=== PATIENT | male | born 1940 | race Caucasian/White ===

== ENCOUNTER 2021-04-13 20:11 | Inpatient (IN) ==
[2021-04-13] MEDS ORDERED: Isovue-370 500 ML BOTTLE IVP ONE (20:32)
[2021-04-13 21:09] LABS: Basophils # 0.1 K/mcL (0.0-0.2); Basophils % 0.4 %; Eosinophils % 0.1 %; Hematocrit 43.8 % (37.5-50.1); Hemoglobin 15.5 g/dL (12.9-16.9); Immature Granulocytes % 0.6 % (0-4); Lymphocytes # 0.6 K/mcL (0.6-4.6); Lymphocytes % 4.4 %; Mean Corpuscular HGB Conc 35.4 g/dL (31.6-35.5); Mean Corpuscular Hemoglobin 32.6 pg (28.0-33.3); Mean Platelet Volume 10.6 fL (9.4-12.4); Monocytes # 0.3 K/mcL (0.0-1.3); Monocytes % 2.2 %; Neutrophils # 12.3 K/mcL (1.6-8.9); Platelet Count 199 K/mcL (140-400); Red Blood Count 4.76 M/mcL (4.19-5.50); Red Cell Distribution Width 12.2 % (11.5-14.5); Segmented Neutrophils % 92.3 %; White Blood Count 13.4 K/mcL (4.3-11.1)
[2021-04-13 21:18] LABS: INR 1.2; Prothrombin Time 13.2 Seconds (9.4-12.1)
[2021-04-13 21:33] LABS: Alanine Aminotransferase 44 Units/L (7-52); Albumin 2.8 g/dL (3.5-5.7); Albumin/Globulin Ratio 0.8 (1.1-2.2); Alkaline Phosphatase 51 Units/L (34-104); Aspartate Amino Transferase 82 Units/L (13-39); BUN/Creatinine Ratio 32 (6-26); Bilirubin,Direct 0.3 mg/dL (0.0-0.2); Bilirubin,Indirect 0.5 mg/dL (0.0-1.0); Bilirubin,Total 0.8 mg/dL (0.3-1.0); Blood Urea Nitrogen 51 mg/dL (8-23); C-Reactive Protein 169 mg/L (Less than 10); Calcium 8.7 mg/dL (8.6-10.3); Carbon Dioxide 19 mEq/L (23-29); Chloride 101 mEq/L (98-107); Globulin 3.4 g/dL (2.4-3.5); Glucose 168 mg/dL (70-105); Lactate Dehydrogenase 418 Units/L (140-271); Magnesium 2.2 mg/dL (1.6-2.6); Osmolality,Calculated 290 (280-300); Phosphorous 2.8 mg/dL (2.7-4.5); Potassium 3.6 mEq/L (3.5-5.1); Sodium 131 mEq/L (136-145); Total Protein 6.2 g/dL (6.4-8.9); Troponin I 0.08 ng/mL (< 0.04); eGFR For African Americans 51 (> 60); eGFR For Non-African Americans 42 (> 60)
[2021-04-13 21:49] LABS: Ferritin > 1500 ng/mL (20-250)
[2021-04-13] MEDS ORDERED: levoFLOXacin 750 MG/150 ML 750 MG/150 ML BAG IVPB ONE (23:57)
[2021-04-14] MEDS ORDERED: Ondansetron 4 MG/2 ML VIAL IVP PRN
[2021-04-14] MEDS ORDERED: Naloxone 0.4 MG/ML INJ IVP PRN
[2021-04-14] MEDS ORDERED: *HR* Metoprolol 5 MG/5 ML VIAL IVP PRN (01:03)
[2021-04-14] MEDS ORDERED: 0.9 % Sodium Chloride 1,000 ML IVC SCH (01:15)
[2021-04-14] MEDS ORDERED: Perflutren Lipid Microsphere 1.3 ML in 0.9 % Sodium Chloride 8.7 ML IVP PRN (02:43)
[2021-04-14 04:42] LABS: Basophils # 0.1 K/mcL (0.0-0.2); Basophils % 0.4 %; Eosinophils % 0.1 %; Hematocrit 44.7 % (37.5-50.1); Hemoglobin 15.8 g/dL (12.9-16.9); Immature Granulocytes % 0.8 % (0-4); Lymphocytes # 0.4 K/mcL (0.6-4.6); Lymphocytes % 2.6 %; Mean Corpuscular HGB Conc 35.3 g/dL (31.6-35.5); Mean Corpuscular Volume 93.3 fL (83.0-100.0); Mean Platelet Volume 10.8 fL (9.4-12.4); Monocytes # 0.2 K/mcL (0.0-1.3); Monocytes % 1.5 %; Neutrophils # 13.5 K/mcL (1.6-8.9); Platelet Count 184 K/mcL (140-400); Red Blood Count 4.79 M/mcL (4.19-5.50); Red Cell Distribution Width 12.2 % (11.5-14.5); Segmented Neutrophils % 94.6 %; White Blood Count 14.2 K/mcL (4.3-11.1)
[2021-04-14 04:58] LABS: Albumin 2.8 g/dL (3.5-5.7); Albumin/Globulin Ratio 0.9 (1.1-2.2); Bilirubin,Total 1.1 mg/dL (0.3-1.0); Calcium 8.7 mg/dL (8.6-10.3); Globulin 3.2 g/dL (2.4-3.5); Magnesium 2.2 mg/dL (1.6-2.6); Phosphorous 2.5 mg/dL (2.7-4.5); Potassium 3.9 mEq/L (3.5-5.1)
[2021-04-14] MEDS ORDERED: *HR* Enoxaparin 40 MG/0.4 ML SYRINGE SQ SCH (06:00)
[2021-04-14] MEDS: Azithromycin 500 MG in 0.9 % Sodium Chloride 250 ML IVPB SCH (08:13)
[2021-04-14] MEDS: cefTRIAXone 1,000 MG in Water for inj. (sterile) 10 ML IVP SCH (08:13)
[2021-04-14 11:07] LABS: Estimated Average Glucose 140 mg/dl; Hemoglobin A1C 6.5 %
[2021-04-14] MEDS ORDERED: *HR* Warfarin 10 MG TABLET PO ONE (18:00)
[2021-04-14] MEDS ORDERED: Warfarin perPT PO PRN (18:00)
[2021-04-15] MEDS: Ipratropium 1 PUFF INHALER IH SCH ×7 (01:00→23:42)
[2021-04-15 02:20] LABS: INR 1.3; Prothrombin Time 14.3 Seconds (9.4-12.1)
[2021-04-15 08:56] LABS: Basophils % 0.1 %; Hematocrit 43.9 % (37.5-50.1); Hemoglobin 15.3 g/dL (12.9-16.9); Immature Granulocytes % 0.6 % (0-4); Lymphocytes # 0.4 K/mcL (0.6-4.6); Lymphocytes % 2.3 %; Mean Corpuscular HGB Conc 34.9 g/dL (31.6-35.5); Mean Corpuscular Hemoglobin 33.1 pg (28.0-33.3); Monocytes # 0.3 K/mcL (0.0-1.3); Monocytes % 1.8 %; Neutrophils # 16.7 K/mcL (1.6-8.9); Platelet Count 223 K/mcL (140-400); Red Blood Count 4.62 M/mcL (4.19-5.50); Red Cell Distribution Width 12.5 % (11.5-14.5); Segmented Neutrophils % 95.2 %; White Blood Count 17.5 K/mcL (4.3-11.1)
[2021-04-15] MEDS ORDERED: *HR* Enoxaparin 100 MG/ML SYRINGE SQ SCH (09:00)
[2021-04-15 09:05] LABS: BUN/Creatinine Ratio 35 (6-26); Blood Urea Nitrogen 43 mg/dL (8-23); Calcium 8.7 mg/dL (8.6-10.3); Carbon Dioxide 21 mEq/L (23-29); Chloride 100 mEq/L (98-107); Glucose 185 mg/dL (70-105); Osmolality,Calculated 286 (280-300); Potassium 3.9 mEq/L (3.5-5.1); Sodium 130 mEq/L (136-145); eGFR For African Americans > 60 (> 60); eGFR For Non-African Americans 57 (> 60)
[2021-04-15] MEDS: Azithromycin 500 MG in 0.9 % Sodium Chloride 250 ML IVPB SCH (10:02)
[2021-04-15] MEDS: cefTRIAXone 1,000 MG in Water for inj. (sterile) 10 ML IVP SCH (10:02)
[2021-04-15 10:50] LABS: Amorphous Sediment,Urine Few per hpf (None-Few); Bilirubin,Urine Negative (Negative); Blood,Urine Trace (Negative); Clarity,Urine Clear (Clear); Color,Urine Yellow (Yellow); Glucose,Urine (UA) Normal (Normal); Hyaline Casts,Urine Few per lpf (None Seen); Ketones,Urine Negative (Negative); Leukocyte Esterase,Urine Negative (Negative); Mucus,Urine Few per lpf (None-Few); Nitrite,Urine Negative (Negative); Protein,Urine 50 mg/dL (Neg-Trace); RBC,Urine 0-3 per hpf (0-3); Specific Gravity,Urine 1.028 (1.010-1.025); Squamous Epithelial Cell,Urine Few per hpf (None-Few); Urobilinogen,Urine Normal (Normal); WBC,Urine 0-3 per hpf (0-3)
[2021-04-15 10:54] LABS: Sodium, Urine 11.2 mEq/L
[2021-04-15] MEDS ORDERED: *HR* Warfarin 10 MG TABLET PO ONE (18:00)
[2021-04-16 02:50] LABS: INR 2.1; Prothrombin Time 22.9 Seconds (9.4-12.1)
[2021-04-16] MEDS: Ipratropium 1 PUFF INHALER IH SCH ×6 (03:14→23:10)
[2021-04-16] MEDS ORDERED: Metoprolol XL (24 HR) Succ 50 MG TAB.ER.24H PO SCH (09:00)
[2021-04-16] MEDS: Azithromycin 500 MG in 0.9 % Sodium Chloride 250 ML IVPB SCH (09:14)
[2021-04-16] MEDS: cefTRIAXone 1,000 MG in Water for inj. (sterile) 10 ML IVP SCH (09:14)
[2021-04-16 09:52] LABS: Basophils % 0.3 %; Hematocrit 43.5 % (37.5-50.1); Immature Granulocytes % 0.5 % (0-4); Lymphocytes # 0.5 K/mcL (0.6-4.6); Mean Corpuscular HGB Conc 34.5 g/dL (31.6-35.5); Mean Corpuscular Hemoglobin 32.5 pg (28.0-33.3); Mean Corpuscular Volume 94.2 fL (83.0-100.0); Mean Platelet Volume 10.3 fL (9.4-12.4); Monocytes # 0.4 K/mcL (0.0-1.3); Monocytes % 3.3 %; Platelet Count 235 K/mcL (140-400); Red Blood Count 4.62 M/mcL (4.19-5.50); Red Cell Distribution Width 12.3 % (11.5-14.5); Segmented Neutrophils % 91.9 %; White Blood Count 11.7 K/mcL (4.3-11.1)
[2021-04-16 09:54] LABS: Neutrophils # 10.8 K/mcL (1.6-8.9)
[2021-04-16 10:07] LABS: Platelet Estimate Normal (Normal)
[2021-04-16 10:13] LABS: BUN/Creatinine Ratio 34 (6-26); Blood Urea Nitrogen 33 mg/dL (8-23); Calcium 8.6 mg/dL (8.6-10.3); Carbon Dioxide 22 mEq/L (23-29); Chloride 104 mEq/L (98-107); Glucose 161 mg/dL (70-105); Osmolality,Calculated 289 (280-300); Potassium 4.4 mEq/L (3.5-5.1); Sodium 134 mEq/L (136-145); eGFR For African Americans > 60 (> 60); eGFR For Non-African Americans > 60 (> 60)
[2021-04-16] MEDS ORDERED: *HR* Warfarin 2.5 MG TABLET PO ONE (18:00)
[2021-04-17 02:58] LABS: Prothrombin Time 34.3 Seconds (9.4-12.1)
[2021-04-17 03:00] LABS: INR 3.1
[2021-04-17] MEDS: Ipratropium 1 PUFF INHALER IH SCH ×6 (03:25→23:00)
[2021-04-17] MEDS: cefTRIAXone 1,000 MG in Water for inj. (sterile) 10 ML IVP SCH (08:18)
[2021-04-17] MEDS: Azithromycin 500 MG in 0.9 % Sodium Chloride 250 ML IVPB SCH (08:19)
[2021-04-17] MEDS ORDERED: Metoprolol XL (24 HR) Succ 50 MG TAB.ER.24H PO SCH ×2 (09:00)
[2021-04-17] MEDS ORDERED: Metoprolol XL (24 HR) Succ 25 MG TAB.ER.24H PO SCH (09:00)
[2021-04-17] MEDS: Metoprolol XL (24 HR) Succ 25 MG TAB.ER.24H PO SCH (10:59)
[2021-04-18 02:04] LABS: Hemoglobin 15.3 g/dL (12.9-16.9); Mean Corpuscular HGB Conc 34.8 g/dL (31.6-35.5); Mean Corpuscular Volume 94.8 fL (83.0-100.0); Mean Platelet Volume 10.6 fL (9.4-12.4); Platelet Count 151 K/mcL (140-400); Red Blood Count 4.64 M/mcL (4.19-5.50); Red Cell Distribution Width 12.2 % (11.5-14.5); White Blood Count 10.4 K/mcL (4.3-11.1)
[2021-04-18 02:19] LABS: INR 5.3
[2021-04-18 02:48] LABS: BUN/Creatinine Ratio 26 (6-26); Blood Urea Nitrogen 35 mg/dL (8-23); C-Reactive Protein 23 mg/L (Less than 10); Calcium 8.5 mg/dL (8.6-10.3); Carbon Dioxide 21 mEq/L (23-29); Chloride 107 mEq/L (98-107); Glucose 157 mg/dL (70-105); Osmolality,Calculated 295 (280-300); Potassium 4.7 mEq/L (3.5-5.1); Sodium 137 mEq/L (136-145); eGFR For African Americans > 60 (> 60); eGFR For Non-African Americans 52 (> 60)
[2021-04-18 03:36] LABS: INR 5.4; Prothrombin Time 59.2 Seconds (9.4-12.1)
[2021-04-18] MEDS: Ipratropium 1 PUFF INHALER IH SCH ×6 (04:15→23:32)
[2021-04-18 04:16] LABS: Activated Partial Thrombo Time 39.5 Seconds (26.0-36.0)
[2021-04-18 04:44] LABS: Alanine Aminotransferase 37 Units/L (7-52); Albumin 2.6 g/dL (3.5-5.7); Albumin/Globulin Ratio 0.8 (1.1-2.2); Alkaline Phosphatase 57 Units/L (34-104); Aspartate Amino Transferase 42 Units/L (13-39); Bilirubin,Direct 0.2 mg/dL (0.0-0.2); Bilirubin,Indirect 0.7 mg/dL (0.0-1.0); Bilirubin,Total 0.9 mg/dL (0.3-1.0); Globulin 3.2 g/dL (2.4-3.5); Lactate Dehydrogenase 585 Units/L (140-271); Total Protein 5.8 g/dL (6.4-8.9)
[2021-04-18] MEDS: Metoprolol XL (24 HR) Succ 25 MG TAB.ER.24H PO SCH (09:21)
[2021-04-18] MEDS: cefTRIAXone 1,000 MG in Water for inj. (sterile) 10 ML IVP SCH (09:22)
[2021-04-18] MEDS: Azithromycin 500 MG in 0.9 % Sodium Chloride 250 ML IVPB SCH (09:23)
[2021-04-19 01:42] LABS: Hematocrit 44.8 % (37.5-50.1); Red Cell Distribution Width 12.4 % (11.5-14.5)
[2021-04-19 01:44] LABS: Hemoglobin 15.5 g/dL (12.9-16.9); Immature Platelets 9.9 % (1.1-6.1); Mean Corpuscular HGB Conc 34.6 g/dL (31.6-35.5); Mean Corpuscular Hemoglobin 32.4 pg (28.0-33.3); Mean Corpuscular Volume 93.5 fL (83.0-100.0); Mean Platelet Volume 12.1 fL (9.4-12.4); Red Blood Count 4.79 M/mcL (4.19-5.50); White Blood Count 8.9 K/mcL (4.3-11.1)
[2021-04-19 01:51] LABS: Platelet Count 88 K/mcL (140-400)
[2021-04-19 01:53] LABS: INR 4.7; Prothrombin Time 51.3 Seconds (9.4-12.1)
[2021-04-19 02:11] LABS: BUN/Creatinine Ratio 18 (6-26); Blood Urea Nitrogen 60 mg/dL (8-23); Carbon Dioxide 22 mEq/L (23-29); Chloride 103 mEq/L (98-107); Glucose 153 mg/dL (70-105); Lactate Dehydrogenase 656 Units/L (140-271); Magnesium 2.1 mg/dL (1.6-2.6); Osmolality,Calculated 298 (280-300); Phosphorous 3.5 mg/dL (2.7-4.5); Potassium 4.5 mEq/L (3.5-5.1); Sodium 134 mEq/L (136-145); eGFR For African Americans 22 (> 60); eGFR For Non-African Americans 18 (> 60)
[2021-04-19 02:29] LABS: Ferritin > 1500 ng/mL (20-250)
[2021-04-19] MEDS: Ipratropium 1 PUFF INHALER IH SCH ×6 (03:59→23:35)
[2021-04-19] MEDS: Doxycycline 100 MG in 0.9 % Sodium Chloride Mini Bag 100 ML IVPB SCH ×2 (06:13→17:39)
[2021-04-19 08:14] LABS: Monocytes # 0.2 K/mcL (0.0-1.3); Nucleated Red Blood Cells 0.2 /100 WBC (0)
[2021-04-19 08:43] LABS: Eosinophils # 0.2 K/mcL (0.0-0.6); Lymphocytes # 0.7 K/mcL (0.6-4.6); Neutrophils # 7.8 K/mcL (1.6-8.9); Platelet Estimate Decreased (Normal)
[2021-04-19] MEDS: Piperacillin/Tazobactam 3.375 GM in 0.9 % Sodium Chloride Mini Bag 100 ML IVPB SCH ×3 (08:53→19:02)
[2021-04-19] MEDS: Metoprolol XL (24 HR) Succ 25 MG TAB.ER.24H PO SCH (08:54)
[2021-04-19] MEDS ORDERED: 0.9 % Sodium Chloride 1,000 ML IVC SCH (11:30)
[2021-04-19] MEDS ORDERED: Sodium Bicarbonate 75 MEQ in 0.45 % Sodium Chloride 1,000 ML IVC SCH (14:15)
[2021-04-19] MEDS: Nitroglycerin 1 INCH/GM PACKET TP SCH (17:35)
[2021-04-19 21:00] LABS: Amorphous Sediment,Urine Few per hpf (None-Few); Bilirubin,Urine Negative (Negative); Blood,Urine Small (Negative); Clarity,Urine Turbid (Clear); Color,Urine Light-Yellow (Yellow); Glucose,Urine (UA) 30 mg/dL (Normal); Ketones,Urine Negative (Negative); Leukocyte Esterase,Urine Small (Negative); Nitrite,Urine Negative (Negative); PH,Urine 5.5 pH Units (5.0-8.0); Protein,Urine 50 mg/dL (Neg-Trace); Specific Gravity,Urine 1.016 (1.010-1.025); Squamous Epithelial Cell,Urine Few per hpf (None-Few); Urobilinogen,Urine Normal (Normal)
[2021-04-19 21:09] LABS: Sodium, Urine 52.7 mEq/L
[2021-04-20 02:15] LABS: Hematocrit 41.5 % (37.5-50.1); Hemoglobin 14.8 g/dL (12.9-16.9); Immature Platelets 10.1 % (1.1-6.1); Mean Corpuscular HGB Conc 35.7 g/dL (31.6-35.5); Mean Corpuscular Hemoglobin 32.9 pg (28.0-33.3); Mean Corpuscular Volume 92.2 fL (83.0-100.0); Mean Platelet Volume 12.2 fL (9.4-12.4); Red Blood Count 4.5 M/mcL (4.19-5.50); Red Cell Distribution Width 12.3 % (11.5-14.5); White Blood Count 9.8 K/mcL (4.3-11.1)
[2021-04-20] MEDS: Piperacillin/Tazobactam 3.375 GM in 0.9 % Sodium Chloride Mini Bag 100 ML IVPB SCH ×3 (02:25→20:42)
[2021-04-20 02:29] LABS: INR 3.4; Prothrombin Time 37.2 Seconds (9.4-12.1)
[2021-04-20 02:41] LABS: Alanine Aminotransferase 36 Units/L (7-52); Albumin 2.1 g/dL (3.5-5.7); Albumin/Globulin Ratio 0.6 (1.1-2.2); Alkaline Phosphatase 63 Units/L (34-104); Aspartate Amino Transferase 31 Units/L (13-39); BUN/Creatinine Ratio 19 (6-26); Bilirubin,Direct 0.3 mg/dL (0.0-0.2); Bilirubin,Indirect 0.7 mg/dL (0.0-1.0); Blood Urea Nitrogen 85 mg/dL (8-23); Calcium 7.6 mg/dL (8.6-10.3); Carbon Dioxide 19 mEq/L (23-29); Chloride 100 mEq/L (98-107); Globulin 3.4 g/dL (2.4-3.5); Glucose 216 mg/dL (70-105); Lactate Dehydrogenase 553 Units/L (140-271); Osmolality,Calculated 304 (280-300); Potassium 4.4 mEq/L (3.5-5.1); Sodium 131 mEq/L (136-145); Total Protein 5.5 g/dL (6.4-8.9); eGFR For African Americans 15 (> 60); eGFR For Non-African Americans 13 (> 60)
[2021-04-20 03:02] LABS: Ferritin > 1500 ng/mL (20-250)
[2021-04-20] MEDS: Ipratropium 1 PUFF INHALER IH SCH ×6 (04:17→23:46)
[2021-04-20] MEDS: Nitroglycerin 1 INCH/GM PACKET TP SCH ×2 (05:27→11:15)
[2021-04-20] MEDS ORDERED: Sodium Bicarbonate 75 MEQ in 0.45 % Sodium Chloride 1,000 ML IVC SCH (08:00)
[2021-04-20] MEDS ORDERED: Doxycycline 100 MG in 0.9 % Sodium Chloride Mini Bag 100 ML IVPB SCH (09:00)
[2021-04-20] MEDS ORDERED: Sodium Bicarbonate 150 MEQ in D5% in Water 1,000 ML IVC SCH (10:00)
[2021-04-20] MEDS: Metoprolol XL (24 HR) Succ 25 MG TAB.ER.24H PO SCH (10:16)
[2021-04-20 12:17] LABS: Complement C3 105 mg/dL (87-200)
[2021-04-20] MEDS: *HR* Heparin 5,000 UNIT/ML VIAL SQ SCH (16:23)
[2021-04-20] MEDS: Doxycycline 100 MG CAPSULE PO SCH (20:42)
[2021-04-21 01:34] LABS: Hematocrit 43.3 % (37.5-50.1); Hemoglobin 15.5 g/dL (12.9-16.9); Mean Corpuscular HGB Conc 35.8 g/dL (31.6-35.5); Mean Corpuscular Hemoglobin 32.9 pg (28.0-33.3); Mean Corpuscular Volume 91.9 fL (83.0-100.0); Platelet Count 122 K/mcL (140-400); Red Blood Count 4.71 M/mcL (4.19-5.50); Red Cell Distribution Width 12.2 % (11.5-14.5); White Blood Count 14.7 K/mcL (4.3-11.1)
[2021-04-21 01:47] LABS: Fibrinogen 224 mg/dL (169-393); INR 2.4; Prothrombin Time 26.3 Seconds (9.4-12.1)
[2021-04-21 01:48] LABS: BUN/Creatinine Ratio 20 (6-26); Blood Urea Nitrogen 104 mg/dL (8-23); C-Reactive Protein 61 mg/L (Less than 10); Calcium 7.7 mg/dL (8.6-10.3); Carbon Dioxide 18 mEq/L (23-29); Chloride 99 mEq/L (98-107); Glucose 276 mg/dL (70-105); Lactate Dehydrogenase 588 Units/L (140-271); Magnesium 2.1 mg/dL (1.6-2.6); Osmolality,Calculated 318 (280-300); Potassium 4.1 mEq/L (3.5-5.1); Sodium 133 mEq/L (136-145); eGFR For African Americans 13 (> 60); eGFR For Non-African Americans 11 (> 60)
[2021-04-21 01:59] LABS: D-Dimer 15657 ng/mLFEU (0-500)
[2021-04-21 02:06] LABS: Ferritin > 1500 ng/mL (20-250)
[2021-04-21] MEDS: Ipratropium 1 PUFF INHALER IH SCH ×6 (03:37→23:44)
[2021-04-21] MEDS: *HR* Heparin 5,000 UNIT/ML VIAL SQ SCH ×2 (05:03→18:13)
[2021-04-21] MEDS: Nitroglycerin 1 INCH/GM PACKET TP SCH ×2 (05:04→12:23)
[2021-04-21] MEDS ORDERED: Dextrose Gel 15 GM/37.5 ML TUBE PO PRN ×2 (08:48)
[2021-04-21] MEDS ORDERED: D5% in Water 1,000 ML IVC PRN (08:48)
[2021-04-21] MEDS ORDERED: *HR* Dextrose 50 % in Water (Syg) 50 ML SYRINGE IVP PRN (08:48)
[2021-04-21] MEDS: Piperacillin/Tazobactam 3.375 GM in 0.9 % Sodium Chloride Mini Bag 100 ML IVPB SCH ×2 (08:54→20:41)
[2021-04-21] MEDS: Doxycycline 100 MG CAPSULE PO SCH ×2 (08:56→20:41)
[2021-04-21] MEDS: Metoprolol XL (24 HR) Succ 25 MG TAB.ER.24H PO SCH (08:56)
[2021-04-21] MEDS: Insulin LISPRO 300 UNITS/3 ML VIAL SUBQ SCH ×2 (13:21→16:52)
[2021-04-21 13:57] LABS: Hepatitis B Surface Antibody < 3.10 mIU/mL
[2021-04-21 14:08] LABS: Hepatitis B Surface Antigen Nonreactive (Nonreactive)
[2021-04-21] MEDS ORDERED: Sodium Bicarbonate 75 MEQ in 0.45 % Sodium Chloride 1,000 ML IVC SCH (14:15)
[2021-04-21] MEDS ORDERED: Heparin 1,000 UNITS/500 mL 500 ML ONE (15:03)
[2021-04-21] MEDS ORDERED: *HR* Heparin 5,000 UNIT/ML VIAL ONE (15:21)
[2021-04-21] MEDS: Insulin DETEMIR 100 UNIT/ML X5UNITS SUBQ SCH (20:42)
[2021-04-22 03:17] LABS: Basophils # 0.1 K/mcL (0.0-0.2); Basophils % 0.4 %; Hemoglobin 15.8 g/dL (12.9-16.9); Immature Granulocytes % 5.5 % (0-4); Lymphocytes # 0.3 K/mcL (0.6-4.6); Lymphocytes % 2.1 %; Mean Corpuscular HGB Conc 35.1 g/dL (31.6-35.5); Mean Corpuscular Hemoglobin 32.7 pg (28.0-33.3); Mean Corpuscular Volume 93.2 fL (83.0-100.0); Mean Platelet Volume 11.7 fL (9.4-12.4); Monocytes # 0.5 K/mcL (0.0-1.3); Monocytes % 3.7 %; Neutrophils # 12.2 K/mcL (1.6-8.9); Nucleated Red Blood Cells 0.1 /100 WBC (0); Platelet Count 117 K/mcL (140-400); Red Blood Count 4.83 M/mcL (4.19-5.50); Red Cell Distribution Width 12.6 % (11.5-14.5); Segmented Neutrophils % 88.3 %; White Blood Count 13.8 K/mcL (4.3-11.1)
[2021-04-22 03:25] LABS: Prothrombin Time 22.5 Seconds (9.4-12.1)
[2021-04-22 03:36] LABS: Platelet Estimate Slight Decrease (Normal)
[2021-04-22 03:38] LABS: Calcium 7.7 mg/dL (8.6-10.3); Potassium 4.5 mEq/L (3.5-5.1)
[2021-04-22] MEDS: Ipratropium 1 PUFF INHALER IH SCH ×6 (04:08→23:43)
[2021-04-22] MEDS: *HR* Heparin 5,000 UNIT/ML VIAL SQ SCH ×2 (05:10→16:23)
[2021-04-22] MEDS: Nitroglycerin 1 INCH/GM PACKET TP SCH ×2 (05:10→12:41)
[2021-04-22] MEDS ORDERED: 0.9 % Sodium Chloride 250 ML IVC PRN (08:01)
[2021-04-22] MEDS ORDERED: *HR* Heparin 10,000 UNIT/10 ML VIAL IV PRN ×2 (08:01)
[2021-04-22] MEDS ORDERED: 0.9 % Sodium Chloride 1,000 ML PRIME SCH (08:15)
[2021-04-22] MEDS: Insulin LISPRO 300 UNITS/3 ML VIAL SUBQ SCH ×3 (08:34→16:37)
[2021-04-22] MEDS: Metoprolol XL (24 HR) Succ 25 MG TAB.ER.24H PO SCH (08:36)
[2021-04-22] MEDS: Doxycycline 100 MG CAPSULE PO SCH ×2 (08:36→21:17)
[2021-04-22] MEDS: Piperacillin/Tazobactam 3.375 GM in 0.9 % Sodium Chloride Mini Bag 100 ML IVPB SCH ×2 (08:37→21:17)
[2021-04-22] MEDS: Acetaminophen 325 MG TABLET PO PRN (12:51)
[2021-04-22] MEDS: Insulin DETEMIR 100 UNIT/ML X5UNITS SUBQ SCH (21:16)
[2021-04-23] MEDS: Acetaminophen 325 MG TABLET PO PRN (03:40)
[2021-04-23] MEDS: Ipratropium 1 PUFF INHALER IH SCH ×6 (04:46→23:35)
[2021-04-23 05:44] LABS: Basophils % 0.5 %; Eosinophils % 0.1 %; Monocytes % 3.1 %; Red Cell Distribution Width 12.7 % (11.5-14.5)
[2021-04-23 05:47] LABS: Basophils # 0.1 K/mcL (0.0-0.2); Hematocrit 46.7 % (37.5-50.1); Immature Granulocytes % 2.9 % (0-4); Immature Platelets 9.1 % (1.1-6.1); Lymphocytes # 0.3 K/mcL (0.6-4.6); Mean Corpuscular HGB Conc 34.3 g/dL (31.6-35.5); Mean Corpuscular Hemoglobin 32.3 pg (28.0-33.3); Mean Corpuscular Volume 94.2 fL (83.0-100.0); Mean Platelet Volume 11.3 fL (9.4-12.4); Monocytes # 0.5 K/mcL (0.0-1.3); Neutrophils # 13.9 K/mcL (1.6-8.9); Nucleated Red Blood Cells 0.1 /100 WBC (0); Red Blood Count 4.96 M/mcL (4.19-5.50); Segmented Neutrophils % 91.4 %; White Blood Count 15.2 K/mcL (4.3-11.1)
[2021-04-23 05:48] LABS: Platelet Count 91 K/mcL (140-400)
[2021-04-23 05:52] LABS: INR 2.1; Prothrombin Time 23.3 Seconds (9.4-12.1)
[2021-04-23] MEDS: Nitroglycerin 1 INCH/GM PACKET TP SCH ×2 (06:02→13:01)
[2021-04-23] MEDS: *HR* Heparin 5,000 UNIT/ML VIAL SQ SCH ×2 (06:02→16:56)
[2021-04-23 06:10] LABS: BUN/Creatinine Ratio 20 (6-26); Blood Urea Nitrogen 82 mg/dL (8-23); Carbon Dioxide 24 mEq/L (23-29); Chloride 102 mEq/L (98-107); Glucose 119 mg/dL (70-105); Lactate Dehydrogenase 707 Units/L (140-271); Magnesium 1.9 mg/dL (1.6-2.6); Osmolality,Calculated 308 (280-300); Phosphorous 4.3 mg/dL (2.7-4.5); Potassium 4.2 mEq/L (3.5-5.1); Sodium 136 mEq/L (136-145); eGFR For African Americans 17 (> 60); eGFR For Non-African Americans 14 (> 60)
[2021-04-23 06:26] LABS: Ferritin > 1500 ng/mL (20-250)
[2021-04-23] MEDS: Insulin LISPRO 300 UNITS/3 ML VIAL SUBQ SCH ×3 (08:45→16:57)
[2021-04-23] MEDS: Doxycycline 100 MG CAPSULE PO SCH ×2 (08:46→21:34)
[2021-04-23] MEDS: Piperacillin/Tazobactam 3.375 GM in 0.9 % Sodium Chloride Mini Bag 100 ML IVPB SCH ×2 (08:49→21:34)
[2021-04-23] MEDS ORDERED: Metoprolol XL (24 HR) Succ 25 MG TAB.ER.24H PO SCH (09:00)
[2021-04-23 12:31] LABS: ANA IgG by ELISA NONE DETECTED (None Detected)
[2021-04-23 15:15] LABS: Serine Protease-3 Antibody 7 AU/mL (0-19)
[2021-04-23] MEDS: Insulin DETEMIR 100 UNIT/ML X5UNITS SUBQ SCH (21:33)
[2021-04-23] MEDS: cilostazoL 100 MG TABLET PO SCH (21:34)
[2021-04-24] MEDS: Acetaminophen 325 MG TABLET PO PRN ×2 (00:01→20:33)
[2021-04-24] MEDS: Artificial Tears SOLN 15 ML BOTTLE BOTH EYES SCH ×5 (01:20→20:31)
[2021-04-24] MEDS: Saline Nasal Spray 44 ML BOTTLE NS SCH ×5 (01:20→20:31)
[2021-04-24] MEDS: Saliva Stimulant 44.3ml BOTTLE PO SCH ×5 (01:21→20:32)
[2021-04-24] MEDS ORDERED: *HR* OxyCODONE Immed Rel 5 MG TABLET PO ONE ×2 (03:00→22:55)
[2021-04-24 03:14] LABS: Eosinophils % 0.1 %; Hemoglobin 15.3 g/dL (12.9-16.9); Nucleated Red Blood Cells 0.1 /100 WBC (0); Red Cell Distribution Width 12.6 % (11.5-14.5)
[2021-04-24 03:16] LABS: Basophils # 0.1 K/mcL (0.0-0.2); Basophils % 0.4 %; Hematocrit 45.6 % (37.5-50.1); Immature Granulocytes % 2.5 % (0-4); Lymphocytes # 0.4 K/mcL (0.6-4.6); Lymphocytes % 2.5 %; Mean Corpuscular HGB Conc 33.6 g/dL (31.6-35.5); Mean Corpuscular Hemoglobin 32.5 pg (28.0-33.3); Mean Corpuscular Volume 96.8 fL (83.0-100.0); Monocytes # 0.5 K/mcL (0.0-1.3); Monocytes % 3.3 %; Neutrophils # 14.4 K/mcL (1.6-8.9); Red Blood Count 4.71 M/mcL (4.19-5.50); Segmented Neutrophils % 91.2 %; White Blood Count 15.8 K/mcL (4.3-11.1)
[2021-04-24 03:24] LABS: INR 1.3; Prothrombin Time 14.3 Seconds (9.4-12.1)
[2021-04-24 03:28] LABS: Platelet Count 67 K/mcL (140-400)
[2021-04-24] MEDS: Ipratropium 1 PUFF INHALER IH SCH ×6 (03:44→22:47)
[2021-04-24 04:09] LABS: Calcium 7.9 mg/dL (8.6-10.3); Potassium 4.8 mEq/L (3.5-5.1)
[2021-04-24] MEDS ORDERED: Morphine Sulfate 2 MG/ML SYRINGE IVP ONE (04:32)
[2021-04-24] MEDS: *HR* Heparin 5,000 UNIT/ML VIAL SQ SCH ×2 (04:45→16:56)
[2021-04-24] MEDS: Nitroglycerin 1 INCH/GM PACKET TP SCH ×2 (04:45→12:16)
[2021-04-24] MEDS: Insulin LISPRO 300 UNITS/3 ML VIAL SUBQ SCH ×3 (08:00→16:55)
[2021-04-24] MEDS: Chlorhexidine Rinse 15 ML MOUTHWASH MM SCH ×2 (09:54→20:33)
[2021-04-24] MEDS: Metoprolol XL (24 HR) Succ 25 MG TAB.ER.24H PO SCH (09:54)
[2021-04-24] MEDS: Doxycycline 100 MG CAPSULE PO SCH ×2 (09:54→20:33)
[2021-04-24] MEDS: cilostazoL 100 MG TABLET PO SCH ×2 (09:54→20:33)
[2021-04-24] MEDS: Piperacillin/Tazobactam 3.375 GM in 0.9 % Sodium Chloride Mini Bag 100 ML IVPB SCH ×2 (09:55→20:32)
[2021-04-24] MEDS: Insulin DETEMIR 100 UNIT/ML X5UNITS SUBQ SCH (20:42)
[2021-04-25] MEDS: Ipratropium 1 PUFF INHALER IH SCH ×5 (03:34→19:39)
[2021-04-25] MEDS: *HR* Heparin 5,000 UNIT/ML VIAL SQ SCH ×2 (05:32→17:49)
[2021-04-25] MEDS: Nitroglycerin 1 INCH/GM PACKET TP SCH ×2 (05:32→12:22)
[2021-04-25 06:50] LABS: Red Cell Distribution Width 12.6 % (11.5-14.5)
[2021-04-25 06:51] LABS: Hematocrit 40.8 % (37.5-50.1); Hemoglobin 13.9 g/dL (12.9-16.9); Immature Platelets 12.1 % (1.1-6.1); Mean Corpuscular HGB Conc 34.1 g/dL (31.6-35.5); Mean Corpuscular Hemoglobin 32.3 pg (28.0-33.3); Mean Corpuscular Volume 94.9 fL (83.0-100.0); Mean Platelet Volume 12.8 fL (9.4-12.4); Red Blood Count 4.3 M/mcL (4.19-5.50); White Blood Count 19.5 K/mcL (4.3-11.1)
[2021-04-25 07:13] LABS: BUN/Creatinine Ratio 26 (6-26); Blood Urea Nitrogen 109 mg/dL (8-23); Calcium 8.3 mg/dL (8.6-10.3); Carbon Dioxide 23 mEq/L (23-29); Chloride 102 mEq/L (98-107); Glucose 108 mg/dL (70-105); Magnesium 2.1 mg/dL (1.6-2.6); Osmolality,Calculated 313 (280-300); Phosphorous 5.4 mg/dL (2.7-4.5); Potassium 4.3 mEq/L (3.5-5.1); Sodium 134 mEq/L (136-145); eGFR For African Americans 17 (> 60); eGFR For Non-African Americans 14 (> 60)
[2021-04-25 08:02] LABS: Ferritin > 1500 ng/mL (20-250)
[2021-04-25] MEDS ORDERED: 0.9 % Sodium Chloride 250 ML IVC PRN (08:16)
[2021-04-25] MEDS ORDERED: *HR* Heparin 10,000 UNIT/10 ML VIAL IV PRN ×2 (08:16)
[2021-04-25] MEDS: Insulin LISPRO 300 UNITS/3 ML VIAL SUBQ SCH ×3 (08:30→17:53)
[2021-04-25] MEDS: Chlorhexidine Rinse 15 ML MOUTHWASH MM SCH ×2 (08:39→20:00)
[2021-04-25] MEDS: cilostazoL 100 MG TABLET PO SCH ×2 (08:40→19:59)
[2021-04-25] MEDS: Piperacillin/Tazobactam 3.375 GM in 0.9 % Sodium Chloride Mini Bag 100 ML IVPB SCH ×2 (08:40→20:00)
[2021-04-25] MEDS: Doxycycline 100 MG CAPSULE PO SCH ×2 (08:40→20:00)
[2021-04-25] MEDS: Metoprolol XL (24 HR) Succ 25 MG TAB.ER.24H PO SCH (08:40)
[2021-04-25] MEDS: Saliva Stimulant 44.3ml BOTTLE PO SCH ×4 (08:41→20:08)
[2021-04-25] MEDS: Artificial Tears SOLN 15 ML BOTTLE BOTH EYES SCH ×4 (08:41→20:07)
[2021-04-25] MEDS: Saline Nasal Spray 44 ML BOTTLE NS SCH ×4 (08:41→20:08)
[2021-04-25] MEDS: Nystatin POWDER 30 GM BOTTLE TP SCH ×3 (08:43→20:07)
[2021-04-25 11:44] LABS: C-Reactive Protein 35 mg/L (Less than 10)
[2021-04-25] MEDS: *HR* OxyCODONE/APAP 5/325 TABLET PO PRN ×2 (12:23→20:07)
[2021-04-26] MEDS: Ipratropium 1 PUFF INHALER IH SCH ×9 (00:21→23:24)
[2021-04-26 00:59] LABS: Basophils % 0.2 %; Hemoglobin 13.4 g/dL (12.9-16.9)
[2021-04-26 01:02] LABS: Hematocrit 38.3 % (37.5-50.1); Immature Granulocytes % 1.5 % (0-4); Immature Platelets 9.5 % (1.1-6.1); Lymphocytes # 0.3 K/mcL (0.6-4.6); Lymphocytes % 1.5 %; Mean Corpuscular Hemoglobin 33.2 pg (28.0-33.3); Mean Corpuscular Volume 94.8 fL (83.0-100.0); Mean Platelet Volume 12.3 fL (9.4-12.4); Monocytes # 0.7 K/mcL (0.0-1.3); Monocytes % 3.9 %; Red Blood Count 4.04 M/mcL (4.19-5.50); Red Cell Distribution Width 12.6 % (11.5-14.5); Segmented Neutrophils % 92.9 %; White Blood Count 18.6 K/mcL (4.3-11.1)
[2021-04-26 01:04] LABS: Neutrophils # 17.3 K/mcL (1.6-8.9); Platelet Count 84 K/mcL (140-400)
[2021-04-26 01:08] LABS: INR 1.3
[2021-04-26 01:18] LABS: Albumin 2.3 g/dL (3.5-5.7); Albumin/Globulin Ratio 0.7 (1.1-2.2); Bilirubin,Total 0.8 mg/dL (0.3-1.0); Calcium 8.3 mg/dL (8.6-10.3); Globulin 3.1 g/dL (2.4-3.5); Potassium 4.7 mEq/L (3.5-5.1); Total Protein 5.4 g/dL (6.4-8.9)
[2021-04-26 01:24] LABS: Calcium 8.2 mg/dL (8.6-10.3); Potassium 4.7 mEq/L (3.5-5.1)
[2021-04-26] MEDS: *HR* Heparin 5,000 UNIT/ML VIAL SQ SCH ×2 (05:06→16:46)
[2021-04-26] MEDS: Insulin LISPRO 300 UNITS/3 ML VIAL SUBQ SCH ×3 (08:20→16:54)
[2021-04-26] MEDS: Nitroglycerin 1 INCH/GM PACKET TP SCH ×2 (08:22→11:40)
[2021-04-26] MEDS: Doxycycline 100 MG CAPSULE PO SCH ×2 (08:34→20:01)
[2021-04-26] MEDS: cilostazoL 100 MG TABLET PO SCH ×2 (08:34→20:01)
[2021-04-26] MEDS: Metoprolol XL (24 HR) Succ 25 MG TAB.ER.24H PO SCH (08:34)
[2021-04-26] MEDS: Piperacillin/Tazobactam 3.375 GM in 0.9 % Sodium Chloride Mini Bag 100 ML IVPB SCH ×2 (08:34→20:02)
[2021-04-26] MEDS: Artificial Tears SOLN 15 ML BOTTLE BOTH EYES SCH ×4 (08:35→20:01)
[2021-04-26] MEDS: Saline Nasal Spray 44 ML BOTTLE NS SCH ×4 (08:35→20:01)
[2021-04-26] MEDS: Saliva Stimulant 44.3ml BOTTLE PO SCH ×4 (08:35→20:01)
[2021-04-26] MEDS: Nystatin POWDER 30 GM BOTTLE TP SCH ×3 (08:36→20:01)
[2021-04-26] MEDS: Chlorhexidine Rinse 15 ML MOUTHWASH MM SCH ×2 (08:36→20:01)
[2021-04-26] MEDS ORDERED: 0.9 % Sodium Chloride 250 ML IVC PRN (08:39)
[2021-04-26] MEDS ORDERED: *HR* Heparin 10,000 UNIT/10 ML VIAL IV PRN ×2 (08:39)
[2021-04-26] MEDS: *HR* OxyCODONE/APAP 5/325 TABLET PO PRN ×2 (08:46→16:46)
[2021-04-26] MEDS ORDERED: Albumin 25% 25gram/100mL 25 GM/100 ML IV.SOLN IVPB ONE (08:57)
[2021-04-26] MEDS ORDERED: Dexamethasone Sodium Phos/PF 10 MG/ML VIAL IVP SCH (09:00)
[2021-04-26] MEDS: Acetaminophen 325 MG TABLET PO PRN (12:18)
[2021-04-26] MEDS ORDERED: *HR* OxyCODONE/APAP 5/325 TABLET PO PRN (12:46)
[2021-04-27 00:50] LABS: Red Cell Distribution Width 12.7 % (11.5-14.5)
[2021-04-27 00:52] LABS: Hematocrit 35.4 % (37.5-50.1); Hemoglobin 12.4 g/dL (12.9-16.9); Immature Platelets 10.9 % (1.1-6.1); Mean Corpuscular Hemoglobin 33.1 pg (28.0-33.3); Mean Corpuscular Volume 94.4 fL (83.0-100.0); Mean Platelet Volume 12.6 fL (9.4-12.4); Red Blood Count 3.75 M/mcL (4.19-5.50); White Blood Count 14.1 K/mcL (4.3-11.1)
[2021-04-27 01:11] LABS: Calcium 8.3 mg/dL (8.6-10.3); Potassium 4.6 mEq/L (3.5-5.1)
[2021-04-27] MEDS: Ipratropium 1 PUFF INHALER IH SCH ×5 (03:22→20:43)
[2021-04-27] MEDS: *HR* Heparin 5,000 UNIT/ML VIAL SQ SCH ×2 (06:26→16:34)
[2021-04-27] MEDS: Nitroglycerin 1 INCH/GM PACKET TP SCH ×2 (06:27→12:18)
[2021-04-27] MEDS: Metoprolol XL (24 HR) Succ 25 MG TAB.ER.24H PO SCH (09:42)
[2021-04-27] MEDS: Doxycycline 100 MG CAPSULE PO SCH ×2 (09:43→20:18)
[2021-04-27] MEDS: cilostazoL 100 MG TABLET PO SCH ×2 (09:43→20:18)
[2021-04-27] MEDS: Nystatin POWDER 30 GM BOTTLE TP SCH ×3 (09:43→20:22)
[2021-04-27] MEDS: Artificial Tears SOLN 15 ML BOTTLE BOTH EYES SCH ×4 (09:43→20:17)
[2021-04-27] MEDS: Piperacillin/Tazobactam 3.375 GM in 0.9 % Sodium Chloride Mini Bag 100 ML IVPB SCH ×2 (09:43→20:18)
[2021-04-27] MEDS: Insulin LISPRO 300 UNITS/3 ML VIAL SUBQ SCH ×3 (09:44→16:32)
[2021-04-27] MEDS: *HR* OxyCODONE/APAP 5/325 TABLET PO PRN ×2 (09:44→16:33)
[2021-04-27] MEDS: Saliva Stimulant 44.3ml BOTTLE PO SCH ×4 (09:52→20:17)
[2021-04-27] MEDS: Saline Nasal Spray 44 ML BOTTLE NS SCH ×4 (09:52→20:17)
[2021-04-27] MEDS: Chlorhexidine Rinse 15 ML MOUTHWASH MM SCH ×2 (09:53→20:18)
[2021-04-27] MEDS: Acetaminophen 325 MG TABLET PO PRN (12:19)
[2021-04-27] MEDS ORDERED: *HR* HYDROmorphone (PF) 1 MG/ML SYRINGE IVP PRN (17:19)
[2021-04-28] MEDS: Ipratropium 1 PUFF INHALER IH SCH ×7 (00:10→23:49)
[2021-04-28] MEDS: *HR* Heparin 5,000 UNIT/ML VIAL SQ SCH ×2 (06:43→16:46)
[2021-04-28] MEDS: Nitroglycerin 1 INCH/GM PACKET TP SCH ×2 (06:44→11:47)
[2021-04-28] MEDS: Doxycycline 100 MG CAPSULE PO SCH ×2 (08:26→21:48)
[2021-04-28] MEDS: Metoprolol XL (24 HR) Succ 25 MG TAB.ER.24H PO SCH (08:26)
[2021-04-28] MEDS: Chlorhexidine Rinse 15 ML MOUTHWASH MM SCH ×2 (08:26→21:51)
[2021-04-28] MEDS: cilostazoL 100 MG TABLET PO SCH ×2 (08:26→21:48)
[2021-04-28] MEDS: Piperacillin/Tazobactam 3.375 GM in 0.9 % Sodium Chloride Mini Bag 100 ML IVPB SCH ×2 (08:27→21:53)
[2021-04-28] MEDS: Saliva Stimulant 44.3ml BOTTLE PO SCH ×4 (08:27→21:51)
[2021-04-28] MEDS: Saline Nasal Spray 44 ML BOTTLE NS SCH ×2 (08:27→11:47)
[2021-04-28] MEDS: Insulin LISPRO 300 UNITS/3 ML VIAL SUBQ SCH ×3 (08:48→16:44)
[2021-04-28] MEDS: Artificial Tears SOLN 15 ML BOTTLE BOTH EYES SCH ×4 (08:48→21:51)
[2021-04-28] MEDS: Nystatin POWDER 30 GM BOTTLE TP SCH ×3 (08:49→21:53)
[2021-04-28 14:50] LABS: Hematocrit 40.2 % (37.5-50.1); Hemoglobin 13.7 g/dL (12.9-16.9); Mean Corpuscular HGB Conc 34.1 g/dL (31.6-35.5); Mean Corpuscular Hemoglobin 32.3 pg (28.0-33.3); Mean Corpuscular Volume 94.8 fL (83.0-100.0); Mean Platelet Volume 11.9 fL (9.4-12.4); Platelet Count 116 K/mcL (140-400); Red Blood Count 4.24 M/mcL (4.19-5.50); Red Cell Distribution Width 13.1 % (11.5-14.5); White Blood Count 16.4 K/mcL (4.3-11.1)
[2021-04-28 14:53] LABS: Calcium 8.5 mg/dL (8.6-10.3); Potassium 4.7 mEq/L (3.5-5.1)
[2021-04-28] MEDS ORDERED: Saline Nasal Spray 44 ML BOTTLE NS PRN (14:59)
[2021-04-28] MEDS ORDERED: *HR* HYDROmorphone (PF) 1 MG/ML SYRINGE IVP PRN (15:31)
[2021-04-28] MEDS: *HR* OxyCODONE/APAP 5/325 TABLET PO SCH ×2 (16:46→22:01)
[2021-04-29] MEDS: Ipratropium 1 PUFF INHALER IH SCH ×6 (04:11→23:53)
[2021-04-29] MEDS: *HR* Heparin 5,000 UNIT/ML VIAL SQ SCH ×2 (04:51→17:28)
[2021-04-29] MEDS: *HR* OxyCODONE/APAP 5/325 TABLET PO SCH ×4 (04:52→23:51)
[2021-04-29] MEDS: Nitroglycerin 1 INCH/GM PACKET TP SCH ×3 (04:52→11:52)
[2021-04-29] MEDS: Insulin LISPRO 300 UNITS/3 ML VIAL SUBQ SCH ×3 (07:38→17:27)
[2021-04-29] MEDS: Saliva Stimulant 44.3ml BOTTLE PO SCH ×4 (07:52→21:19)
[2021-04-29] MEDS: Metoprolol XL (24 HR) Succ 25 MG TAB.ER.24H PO SCH (07:52)
[2021-04-29] MEDS: Artificial Tears SOLN 15 ML BOTTLE BOTH EYES SCH ×4 (07:52→21:19)
[2021-04-29] MEDS: cilostazoL 100 MG TABLET PO SCH ×2 (07:52→21:18)
[2021-04-29] MEDS: Chlorhexidine Rinse 15 ML MOUTHWASH MM SCH ×2 (07:53→21:21)
[2021-04-29] MEDS: Nystatin POWDER 30 GM BOTTLE TP SCH ×3 (07:53→21:19)
[2021-04-29] MEDS ORDERED: *HR* Heparin 10,000 UNIT/10 ML VIAL IV PRN (11:23)
[2021-04-29] MEDS ORDERED: 0.9 % Sodium Chloride 250 ML IVC PRN (11:23)
[2021-04-30 02:09] LABS: Basophils % 0.1 %; Eosinophils # 0.1 K/mcL (0.0-0.6); Eosinophils % 0.4 %; Hemoglobin 12.5 g/dL (12.9-16.9); Immature Granulocytes % 0.8 % (0-4); Lymphocytes # 0.2 K/mcL (0.6-4.6); Lymphocytes % 1.7 %; Mean Corpuscular HGB Conc 33.8 g/dL (31.6-35.5); Mean Corpuscular Hemoglobin 32.3 pg (28.0-33.3); Mean Corpuscular Volume 95.6 fL (83.0-100.0); Monocytes # 0.6 K/mcL (0.0-1.3); Monocytes % 4.4 %; Neutrophils # 12.9 K/mcL (1.6-8.9); Platelet Count 123 K/mcL (140-400); Red Blood Count 3.87 M/mcL (4.19-5.50); Red Cell Distribution Width 13.1 % (11.5-14.5); Segmented Neutrophils % 92.6 %; White Blood Count 13.9 K/mcL (4.3-11.1)
[2021-04-30 02:32] LABS: Blood Urea Nitrogen > 130 mg/dL (8-23); Carbon Dioxide 22 mEq/L (23-29); Chloride 99 mEq/L (98-107); Glucose 119 mg/dL (70-105); Potassium 4.7 mEq/L (3.5-5.1); Sodium 134 mEq/L (136-145); eGFR For African Americans 11 (> 60); eGFR For Non-African Americans 9 (> 60)
[2021-04-30] MEDS: Ipratropium 1 PUFF INHALER IH SCH ×7 (03:34→23:38)
[2021-04-30] MEDS: *HR* Heparin 5,000 UNIT/ML VIAL SQ SCH ×2 (05:46→16:59)
[2021-04-30] MEDS: *HR* OxyCODONE/APAP 5/325 TABLET PO SCH ×5 (05:46→22:06)
[2021-04-30] MEDS: Nitroglycerin 1 INCH/GM PACKET TP SCH ×2 (05:47→11:04)
[2021-04-30] MEDS: Insulin LISPRO 300 UNITS/3 ML VIAL SUBQ SCH ×3 (07:25→16:59)
[2021-04-30] MEDS: Artificial Tears SOLN 15 ML BOTTLE BOTH EYES SCH ×4 (07:25→22:05)
[2021-04-30] MEDS: Chlorhexidine Rinse 15 ML MOUTHWASH MM SCH ×2 (07:26→22:05)
[2021-04-30] MEDS: Saliva Stimulant 44.3ml BOTTLE PO SCH ×4 (07:26→22:05)
[2021-04-30] MEDS: Metoprolol XL (24 HR) Succ 25 MG TAB.ER.24H PO SCH ×3 (07:31→07:51)
[2021-04-30] MEDS: cilostazoL 100 MG TABLET PO SCH ×3 (07:31→22:06)
[2021-04-30] MEDS: Nystatin POWDER 30 GM BOTTLE TP SCH ×3 (07:31→22:05)
[2021-05-01] MEDS ORDERED: *HR* Metoprolol 5 MG/5 ML VIAL IVP ONE ×2 (01:11→03:41)
[2021-05-01] MEDS: *HR* Promethazine 25 MG/ML VIAL IM ONE ×2 (04:02→04:09)
[2021-05-01] MEDS: Ipratropium 1 PUFF INHALER IH SCH ×2 (04:08→08:07)
[2021-05-01] MEDS: Chlorhexidine Rinse 15 ML MOUTHWASH MM SCH (07:40)
[2021-05-01] MEDS: cilostazoL 100 MG TABLET PO SCH (07:40)
[2021-05-01] MEDS: Artificial Tears SOLN 15 ML BOTTLE BOTH EYES SCH (07:40)
[2021-05-01] MEDS: Insulin LISPRO 300 UNITS/3 ML VIAL SUBQ SCH (07:40)
[2021-05-01] MEDS: *HR* OxyCODONE/APAP 5/325 TABLET PO SCH (07:40)
[2021-05-01] MEDS: Saliva Stimulant 44.3ml BOTTLE PO SCH (07:40)
[2021-05-01] MEDS: Nitroglycerin 1 INCH/GM PACKET TP SCH (07:40)
[2021-05-01] MEDS: *HR* Heparin 5,000 UNIT/ML VIAL SQ SCH (07:41)
[2021-05-01] MEDS: Metoprolol XL (24 HR) Succ 25 MG TAB.ER.24H PO SCH (07:41)
[2021-05-01] MEDS ORDERED: *HR* Digoxin 0.5 MG/2 ML AMPUL IVP ONE (07:53)
[2021-05-01] MEDS ORDERED: 0.9 % Sodium Chloride 250 ML IVC ONE (07:53)
[2021-05-01] MEDS ORDERED: Insulin LISPRO 300 UNITS/3 ML VIAL SUBQ SCH (08:00)
[2021-05-01 08:11] LABS: Mean Corpuscular HGB Conc 33.2 g/dL (31.6-35.5); Mean Corpuscular Hemoglobin 32.6 pg (28.0-33.3); Mean Corpuscular Volume 98.2 fL (83.0-100.0); Mean Platelet Volume 12.1 fL (9.4-12.4); Monocytes # 0.2 K/mcL (0.0-1.3); Platelet Count 152 K/mcL (140-400); Red Blood Count 4.48 M/mcL (4.19-5.50); Red Cell Distribution Width 13.3 % (11.5-14.5); White Blood Count 7.2 K/mcL (4.3-11.1)
[2021-05-01 08:32] LABS: Hemoglobin 14.6 g/dL (12.9-16.9)
[2021-05-01] MEDS ORDERED: *HR* LORazepam 2 MG/ML VIAL IVP PRN (09:36)
[2021-05-01] MEDS ORDERED: Atropine 1% Opth Drops 100 DROP/5 ML BOTTLE SL PRN (09:37)
[2021-05-01] MEDS ORDERED: *HR* HYDROmorphone (PF) 1 MG/ML SYRINGE IVP PRN (09:37)
[2021-05-01 11:49] LABS: Lymphocytes # 0.4 K/mcL (0.6-4.6); Neutrophils # 6.6 K/mcL (1.6-8.9); Reactive Lymphocytes Present (Not Present); Toxic Granulation Present (Not Present)
[2021-05-01 11:50] LABS: Platelet Estimate Normal (Normal)
[2021-05-01 12:30] LABS: Alanine Aminotransferase 26 Units/L (7-52); Albumin 2.7 g/dL (3.5-5.7); Albumin/Globulin Ratio 0.8 (1.1-2.2); Alkaline Phosphatase 57 Units/L (34-104); Aspartate Amino Transferase 21 Units/L (13-39); Bilirubin,Direct 0.3 mg/dL (0.0-0.2); Bilirubin,Indirect 0.8 mg/dL (0.0-1.0); Bilirubin,Total 1.1 mg/dL (0.3-1.0); Blood Urea Nitrogen > 130 mg/dL (8-23); Calcium 8.2 mg/dL (8.6-10.3); Carbon Dioxide 16 mEq/L (23-29); Chloride 98 mEq/L (98-107); Globulin 3.2 g/dL (2.4-3.5); Glucose 145 mg/dL (70-105); Sodium 137 mEq/L (136-145); Total Protein 5.9 g/dL (6.4-8.9); eGFR For African Americans 9 (> 60); eGFR For Non-African Americans 7 (> 60)
[2021-05-01 18:40] VITALS: BP 46/24; PULSE 141; TEMP 97.4; O2SAT 92
== END 2021-05-01 14:08 | disposition expired | DRG 871 ==
LOC: EMEROOARM 20:11 → 2ANU 20:11 → SUATTDRO 04-14 01:40 → 2ANU 04-14 02:43 → 2NENU 04-21 18:02
PROVIDERS: ADMIT Student in an Organized Health Care Education/Training Program; ATTEND Internal Medicine